=== PATIENT | male | born 1945 | race Caucasian/White ===

== ENCOUNTER → 2016-09-05 | Outpatient (CLI) | payer OTHER, MEDICARE | LOC: FIMAGING 11:35 | PROVIDERS: ATTEND Neurological Surgery | DX: G91.9 Hydrocephalus, unspecified (principal); Z86.39 Personal history of other endocrine, nutritional and metabolic disease ==

== ENCOUNTER → 2016-09-29 | Outpatient (CLI) | payer OTHER, MEDICARE | LOC: FIMAGING 11:15 | PROVIDERS: ATTEND Orthopaedic Surgery | DX: Z01.818 Encounter for other preprocedural examination (principal); M17.12 Unilateral primary osteoarthritis, left knee; M25.562 Pain in left knee; M25.462 Effusion, left knee ==

== ENCOUNTER 2016-10-15 06:50 | Observation (INO) | payer OTHER, MEDICARE ==
[2016-09-30 12:48] LABS: % IMMATURE GRANULYOCYTES 0.4 % (0.0-1.1); ABSOLUTE IMMATURE GRANULOCYTES 0.04 10^3/uL (0.00-0.10); ADD DIFF? NO; ADD MORPH? NO; ADD SCAN? NO; ATYPICAL LYMPHOCYTE FLAG 0 (0-99); FRAGMENT RBC FLAG 0 (0-99); HEMATOCRIT 51.8 % (40.0-51.0); HEMOGLOBIN 17.3 g/dL (13.7-17.5); LEFT SHIFT FLG 0 (0-99); LIPEMIA HEMOLYSIS FLAG 80 (0-99); MEAN CELL HEMOGLOBIN 30.5 pg (27.9-34.1); MEAN CELL HEMOGLOBIN CONCENTR. 33.4 g/dL (32.4-36.7); MEAN CELL VOLUME 91.2 fL (81.5-99.8); MEAN PLATELET VOLUME 9.8 fL (8.7-11.7); PLATELET CLUMPS FLAG 10 (0-99); PLATELET COUNT 374 10^3/uL (150-400); RED BLOOD CELL COUNT 5.68 10^6/uL (4.40-6.38); RED CELL DISTRIBUTION WIDTH 12.6 % (11.5-15.2)
[~2016-10-15 06:50] MED LIST: ACETAMINOPHEN 325 MG TAB PO ONE; CEFAZOLIN 2 GM/DEXTR 100 ML IV ONE; CHLORHEXIDINE GLUC HIBICLENS 118 ML BTL TP ONE; DEXAMETHASONE 4 MG/ML VIAL IVP ONE; FAMOTIDINE 20 MG TAB PO ONE; ROPI/epiNEPH/KETOROLAC JOINT COCKTAIL IU ONE; TRANEXAMIC ACID 3,000 MG in NS 50 ML IRR ONE
[2016-10-15] MEDS ORDERED: PROPOFOL/EMULSION 500 MG/50 ML BOTTLE IV ONE (07:42)
[2016-10-15] MEDS ORDERED: fentaNYL 100 MCG/2 ML INJ ONE (07:42)
[2016-10-15] MEDS ORDERED: VANCOMYCIN 1 GM VIAL IV ONE (07:47)
[2016-10-15] MEDS ORDERED: LIDOCAINE 2% 5 ML SDV ONE (07:47)
[2016-10-15] MEDS ORDERED: DEXAMETHASONE 4 MG/ML VIAL ONE ×3 (07:47)
[2016-10-15] MEDS ORDERED: TRANEXAMIC ACID 3,000 MG/50 ML BAG IRR ONE (07:47)
[2016-10-15] MEDS ORDERED: LIDOCAINE 1% 2 ML INJ ONE (07:50)
[2016-10-15] MEDS ORDERED: BUPIVACAINE 0.5% 30 ML SDV ONE (07:53)
[2016-10-15] MEDS ORDERED: LIDOCAINE 1% 5 ML SDV ID PRN (08:32)
[2016-10-15] MEDS ORDERED: LR 1,000 ML IV ONE (08:32)
[2016-10-15] MEDS ORDERED: LACTULOSE 20 GM/30 ML UDCUP PO PRN (09:22)
[2016-10-15] MEDS ORDERED: PHARMACY PAIN CONSULT 1 EA MISC PRN (09:22)
[2016-10-15] MEDS ORDERED: TEMAZEPAM 15 MG CAP PO PRN (09:22)
[2016-10-15] MEDS ORDERED: PROMETHAZINE HCL 25 MG SUPPR PR PRN (09:22)
[2016-10-15] MEDS ORDERED: METOCLOPRAMIDE 10 MG/2 ML VIAL IVP PRN (09:22)
[2016-10-15] MEDS ORDERED: CYCLOBENZAPRINE 10 MG TAB PO PRN (09:22)
[2016-10-15] MEDS ORDERED: diphenhydrAMINE 25 MG CAP PO PRN (09:22)
[2016-10-15] MEDS ORDERED: MAGNESIUM HYDROXIDE 30 ML UDCUP PO PRN (09:22)
[2016-10-15] MEDS ORDERED: ONDANSETRON 4 MG/2 ML VIAL IVP PRN (09:22)
[2016-10-15] MEDS ORDERED: DIPHENOXYLATE/ATROPINE LOMOTIL 1 TAB PO PRN (09:22)
[2016-10-15] MEDS ORDERED: ONDANSETRON DISINTEGRATING 4 MG TAB PO PRN (09:22)
[2016-10-15] MEDS ORDERED: POLYETHYLENE GLYCOL 3350 17 GM PKT PO PRN (09:22)
[2016-10-15] MEDS ORDERED: BISACODYL 10 MG SUPP PR PRN (09:22)
[2016-10-15] MEDS ORDERED: HYDROCORTISONE 100 MG/2 ML VIAL IVP SCH (09:26)
[2016-10-15] MEDS ORDERED: LR 1,000 ML IV SCH (09:30)
--- NOTE | 2016-10-15 10:21 | POSTOPPROG ---
Post Op Note Date of Operation: 10/15/16 Surgeon: Marcella Lyon [employer] Worker: cj lyon Anesthesiologist: dr. thomas Anesthesia: Spinal, Other (Specify) (adductor canal block) Pre-op Diagnosis: left knee OA Post-op Diagnosis: same Indication: left knee pain due to OA that failed conservative measures Procedure: L med partial knee arthroplasty, robot assisted Findings: severe medial knee OA and osteophytes Inf/Abcess present in the surg proc area at time of surgery?: No EBL: 50-100
[2016-10-15] MEDS: oxyCODONE IR 5 MG TAB PO PRN (15:01)
[2016-10-15] MEDS: ACETAMINOPHEN 325 MG TAB PO SCH ×4 (15:03→23:47)
[2016-10-15] MEDS ORDERED: HYDROCORTISONE 10 MG TAB PO ONE (15:20)
[2016-10-15] MEDS ORDERED: WARFARIN SODIUM 5 MG TAB PO SCH (16:00)
[2016-10-15] MEDS: ceFAZolin 2 GM/DEXTROSE 100 ML IV SCH ×2 (17:05→21:05)
[2016-10-15] MEDS: SENNOSIDES/DOCUSATE SODIUM TAB PO SCH (21:04)
[2016-10-15] MEDS: FAMOTIDINE 20 MG TAB PO SCH (21:05)
[2016-10-16 05:07] LABS: HEMOGLOBIN 12.9 g/dL (13.7-17.5)
[2016-10-16] MEDS: oxyCODONE IR 5 MG TAB PO PRN ×2 (05:17→08:40)
[2016-10-16] MEDS: ACETAMINOPHEN 325 MG TAB PO SCH (05:17)
[2016-10-16 05:20] LABS: INR 1.11 (0.83-1.16); PROTIME(PATIENT) 14.2 SEC (12.0-15.0)
[2016-10-16 07:58] VITALS: BP 113/61; PULSE 78; RESP 20; TEMP 98.4; O2SAT 97
[2016-10-16] MEDS: FAMOTIDINE 20 MG TAB PO SCH (08:38)
[2016-10-16] MEDS: SENNOSIDES/DOCUSATE SODIUM TAB PO SCH (08:38)
[2016-10-16] MEDS ORDERED: TAMSULOSIN HCL 0.4 MG CAP PO SCH (09:00)
[2016-10-16] MEDS ORDERED: DULoxetine 60 MG CAP PO SCH (09:00)
[2016-10-16] MEDS ORDERED: HYDROCORTISONE 10 MG TAB PO SCH (09:00)
[2016-10-16] MEDS ORDERED: ENOXAPARIN 40 MG/0.4 ML SYR SC SCH (09:00)
--- NOTE | 2016-10-16 09:57 | SOAPPROG ---
SOAP Progress Note Assessment/Plan: Assessment: Patient is doing well POD 1 s/p L med MPL 1)Pain management: pain is well controlled on oral pain meds. 2)VTE ppx: recommend coumadin and lovenoxs, cont ERIKA and SCDs 3)Anemia: level is expected initially postop. Asymptomatic. Continue to monitor 4) D/c planning: d/c to home today pending release from PT 5) incision drainage: changed incision dressing today, recommend patient leave in place until Thursday. Change dressing to extra one that hospital will give patient. Call Dr. Keen's office if any concerns arise. Plan: 10/16/16 09:55 Subjective: Jorge is doing well today, denies SOB, chest pain and N/V. 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
--- NOTE | 2016-10-16 14:52 | GDS ---
[f rep st] DISCHARGE SUMMARY ADMISSION DIAGNOSIS: Left knee osteoarthritis. DISCHARGE DIAGNOSIS: Left knee osteoarthritis. PROCEDURE: Left partial knee arthroplasty, medial compartment, robot assisted. VTE PROPHYLAXIS: Coumadin and Lovenox recommended. BRIEF DESCRIPTION OF HOSPITAL STAY: Patient was admitted for an elective joint arthroplasty. The p atient tolerated the procedure well and has passed physical therapy. The patient was given appropri ate antibiotic prophylaxis and venous thromboembolism prophylaxis. The patient's pain was well cont rolled on oral pain medication, patient was holding down food, and had urinated. Decision was made to discharge the patient. The patient was given post-operative prescriptions pre-operatively. PLAN: Please follow up as scheduled in Dr. Keen's office on November 04 at 11 a.m. /[id number]/MODL
--- NOTE | 2016-10-17 12:04 | GOP ---
[f rep st] OPERATIVE REPORT DATE OF OPERATION: 10/15/2016 SURGEON: Eddy Keen MD BALING MACHINE OPERATOR: Erin Keen, MAURO. ANESTHESIA: Spinal. PREOPERATIVE DIAGNOSIS: Left knee osteoarthritis. POSTOPERATIVE DIAGNOSIS: Left knee osteoarthritis. PROCEDURE PERFORMED: Left medial compartment partial knee replacement with computer navigation and robotic assist. FINDINGS: INDICATIONS: This is a 70-year-old male with severe and progressive pain and deformity of the left knee unresponsive to conservative care. The risks and benefits of surgical intervention were explain ed in detail. DESCRIPTION OF PROCEDURE: The patient was brought to the operating room and placed on the table in supine position. Spinal anesthesia was induced without difficulty. A pneumatic tourniquet was appli ed about the left proximal thigh and the leg was prepped and draped in sterile fashion. Attention w as turned first to the distal aspect of the left femur. At 3 cm proximal to the lateral rise of the femur, 2 percutaneous half pins were placed for fixation of the femoral array. In a similar fashio n, 2 pins were placed anterolateral on the tibia for fixation of the tibial array. External land ma rking and registration of the hip center was performed without difficulty. After exsanguination by elevation, the tourniquet was inflated to 250 mmHg. Incision was made from the tibial tuberosity to the superior pole of the patella. Dissection was ca rried out through the subcutaneous tissue to the deep fascia using Bovie electrocautery for hemostas is. Medial parapatellar arthrotomy was carried out to the superior pole of the patella. The medial collateral ligament was elevated and the infrapatellar fat pad was resected. Internal femoral and tibial registration was carried out without difficulty and the femoral and tibial checkpoints were p laced and verified for accuracy. Attention was turned to the femur. The foot print for the size 5 femoral component was cut with the 6 mm bur using the [employer] robotic system and verified for accuracy against the CT based plan. The hol e was cut for the femoral post. In a similar fashion, the 6 mm bur was used to cut the foot print f or the size 5 tibial component using the BEST system and verified for accuracy against the CT based p sherron. Attention was turned to the posterior aspect of the knee and remnants of the medial meniscus were ex cised. The posterior capsule was injected with ropivacaine, epinephrine and Toradol. Trial reducti on was carried out and there was excellent range of motion, alignment and stability using the size 5 femoral component and the size 5 tibial component, 5 x 9 mm polyethylene. All trials were then removed. The joint was thoroughly irrigated and carefully dried. One package of cement and 1 gram of vancomycin were mixed in the vacuum mixer and placed on the fixation surface s of all components. The components were implanted and all excess cement was thoroughly removed. I mplant placement was verified against the CT view plan and found to be excellent. The tourniquet was deflated and all bleeders were coagulated. The wound was thoroughly irrigated an d closed using interrupted sutures of 2-0 Vicryl for the joint capsule. The subcu was closed with 3 -0 Vicryl and the skin with 4-0 Monocryl. Dermabond and Steri-Strips were applied, followed by a co mpressive dressing. The patient was then moved from the operating room to the recovery room in good condition, having tolerated the procedure well. CASE CLASSIFICATION: Clean. PATHOLOGY: Severe medial compartment osteoarthritis. /[id number]/MODL
== END 2016-10-16 12:13 | disposition home or self-care (01) ==
LOC: INTOOBSV 06:50 → F3N 06:50
PROVIDERS: ADMIT Orthopaedic Surgery; ATTEND Orthopaedic Surgery
DX: M17.12 Unilateral primary osteoarthritis, left knee (principal)
CPT/HCPCS: 27442; 73560; 97110; 97116; 97161; 97165; C1713; C1776; G8978; G8979; G8980; G8987; G8988; G8989; J0171; J0690; J1100; J1650; J1885; J2704; J2795; J3010; J3370; G8981-GP-CI

== ENCOUNTER 2016-12-15 18:19 | Emergency (ER) | payer OTHER, MEDICARE ==
--- NOTE | 2016-12-15 19:16 | EDPHY ---
H & P HPI/ROS: HPI SENIOR QUALITY ASSURANCE ENGINEER shunt evaluation. 70-year-old male by private vehicle with his . This patient has a history of hydrocephalus. He has had a SENIOR QUALITY ASSURANCE ENGINEER shunt in place for the last 3 years. He has had complications from his SENIOR QUALITY ASSURANCE ENGINEER shunts including subdural hematomas and required abdominal surgery to remove the parts of the faulty shunt. He is currently being managed by Humberto Anne. He presents to the emergency department stating that for at least the last month he has had issues with balance. He reports that he leans to 1 side or the other and has to make a conscious effort to correct himself. He also describes having very mild vertigo associated with this. He describes as well having a very mild headache which she has had for at least a month and a half. His states that when he is taking a nap he has been hard to wake up than usual. She states this has been going on for 2 and half to 3 weeks. The patient denies any new or worsening headache. No fever. No neck pain. He denies any loss of sensation or weakness in his extremities. Has no other complaints. He was sent by his neurosurgeon, Dr. Humberto Anne for a CT to evaluate his shunt function. ROS: Constitutional: No fever, no chills. As above. Eyes: No discharge. No changes in vision. ENT: No sore throat. No nasal congestion or rhinorrhea. Respiratory: No cough. No shortness of breath. Cardiac: No chest pain, no palpitations. Gastrointestinal: No abdominal pain, no vomiting, no diarrhea. Genitourinary: No hematuria. No dysuria or increased frequency with urination. Musculoskeletal: No back pain. No neck pain. No myalgias or arthralgias. Skin: No rashes. Neurological: As above. No focal weakness or altered sensation. Past medical history: Pituitary tumor, hydrocephalus, neuropathy, SENIOR QUALITY ASSURANCE ENGINEER shunt placement in August of 2014, bilateral knee surgery. As above. Social history: Nonsmoker. No alcohol. Here with his . Physical Exam: General Appearance: Alert, no distress. This patient is responding to questions appropriately and in full sentences. This patient appears well- hydrated and well-nourished. Head: Normocephalic atraumatic Eyes: Pupils equal and round no pallor or injection. No lid edema, erythema or injection. Respiratory: There are no retractions, lungs are clear to auscultation with good air movement bilaterally. Cardiovascular: Regular rate and rhythm. No murmur. Gastrointestinal: Abdomen is soft and nontender, no masses, bowel sounds normal. No focal tenderness at McBurney's point. No Hutton sign. Neurological: Motor sensory function is grossly intact. Cranial nerves are normal. He has a shuffling gait which is his baseline. He does ambulate well with a cane. He is answering questions appropriately. He does not appear confused. He denies any urinary incontinence. Skin: Warm and dry, no rashes. Musculoskeletal: Neck is supple and nontender. Extremities are symmetrical. All joints range without pain or impingement. Psychiatric: No agitation. No depression. Database: EKG: Imaging: CT scan of head without contrast: No change from prior study August of 2016. Results were discussed with staff radiologist Dr. Vlad Heart. Procedures: Emergency department course: Patient sent for CT imaging. Spoke with Dr. Humberto Anne at 7:[address] scan discussed with him. Neurologic Assessment discussed. Dr. Anne feels comfortable with this patient being discharged from the emergency department following up in his office for possible shunt adjustment. 7:15 p.m., patient re-evaluated. Sitting upright on the bed. Repeat neurologic Assessment is nonfocal and at baseline. My conversation with Dr. Anne was reviewed with the patient and his . Results of the CT scan were discussed with the patient and his . They both feel comfortable going home and following up with Dr. Humberto Anne in the office in the next 1-2 days. He will call Dr. Anne in the morning for appointment time. I feel this is reasonable. Return to emergency department precautions were discussed with the 2 of them. All of their questions were answered. The patient was discharged in good condition. Differential Diagnosis: The differential diagnosis on this patient includes but is not limited to chronic hydrocephalus. SENIOR QUALITY ASSURANCE ENGINEER shunt malfunction, CVA, intracranial bleeding unlikely. This represents a partial list of diagnoses considered. These considerations are based on history, physical exam, past history, reassessment and diagnostic testing. Smoking Status: Current every day smoker Constitutional: Initial Vital Signs Temperature (C) 36.8 C 12/15/16 18:30 Heart Rate 74 12/15/16 18:30 Respiratory Rate 18 12/15/16 18:30 Blood Pressure 132/71 H 12/15/16 18:30 O2 Sat (%) 91 L 12/15/16 18:30 O2 Delivery Mode Room Air Allergies/Adverse Reactions: amoxicillin trihydrate [From Augmentin] Allergy (Mild, Verified 12/15/16 18:40) Rash potassium clavulanate [From Augmentin] Allergy (Mild, Verified 12/15/16 18:40) Rash Home Medications: Medication Instructions Recorded DULoxetine [Cymbalta 60 MG (*)] 60 mg PO DAILY 03/09/15 Tamsulosin HCl [Flomax 0.4 MG (*)] 0.4 mg PO DAILY 03/09/15 Herbals/Supplements -Info Only 1 ea PO DAILY 09/15/16 Hydrocodone/Acetaminophen [[place] 2 tab PO BID PRN 09/15/16 7.5-325 Tablet] Hydrocortisone [Cortef 10 mg (*)] 30 mg PO DAILY 09/15/16 Multivitamins [Multivitamin (*)] 1 tab PO DAILY 09/15/16 Arthritis Med 12/15/16 Medical Decision Making - Diagnostics Imaging Results: Imaging Impressions Head CT 12/15/16 17:10 Impression: 1. Stable hydrocephalus with a right occipital ventriculostomy catheter in stable position, with no acute findings. 2. Stable right pituitary adenoma. 3. Additional findings as above. Findings discussed with Angelito Anne 12/15/2016, at 1750 hours. The patient will be escorted to the ED at the request of Dr. Anne. The patient and the CT findings were discussed with Christiano Vázquez today, 12/15/2016, at 1750 hours. Departure - Departure Disposition: Home, Routine, Self-Care Clinical Impression: Hydrocephalus Condition: Good Instructions: Idiopathic Intracranial Hypertension (ED) Additional Instructions: Read and follow provided instructions. Follow-up with Dr. Humberto Anne, neurosurgeon, as discussed in the next 1-2 days. Call his office in the morning for appointment time. Continue your medications as prescribed. Return to the emergency department for worsening symptoms, worsening headache, fever, vomiting or other serious concerns. Referrals: Angelito Anne MD [Medical Doctor] - As per Instructions
[2016-12-15 19:36] VITALS: BP 102/70; PULSE 73; RESP 16; TEMP 97.7; O2SAT 93
== END 2016-12-15 19:36 | disposition home or self-care (01) ==
LOC: EDSTATUS 18:19
DX: G91.9 Hydrocephalus, unspecified (principal); F17.200 Nicotine dependence, unspecified, uncomplicated; Y82.8 Other medical devices associated with adverse incidents

== ENCOUNTER → 2017-01-13 | Outpatient (CLI) | payer OTHER, MEDICARE ==
[~2017-01-13] MED LIST changes: -ACETAMINOPHEN 325 MG TAB PO ONE; -CEFAZOLIN 2 GM/DEXTR 100 ML IV ONE; -CHLORHEXIDINE GLUC HIBICLENS 118 ML BTL TP ONE; -DEXAMETHASONE 4 MG/ML VIAL IVP ONE; -FAMOTIDINE 20 MG TAB PO ONE; +GADOBUTROL 10 ML VIAL IVP ONE; -ROPI/epiNEPH/KETOROLAC JOINT COCKTAIL IU ONE; -TRANEXAMIC ACID 3,000 MG in NS 50 ML IRR ONE
== END ==
LOC: FIMAGING 07:11
PROVIDERS: ATTEND Physician Assistant
DX: M48.06 Spinal stenosis, lumbar region (principal); M51.36 Other intervertebral disc degeneration, lumbar region; M51.26 Other intervertebral disc displacement, lumbar region; M46.96 Unspecified inflammatory spondylopathy, lumbar region; M51.35 Other intervertebral disc degeneration, thoracolumbar region; M46.95 Unspecified inflammatory spondylopathy, thoracolumbar region; M48.05 Spinal stenosis, thoracolumbar region; M51.37 Other intervertebral disc degeneration, lumbosacral region; M46.97 Unspecified inflammatory spondylopathy, lumbosacral region; M48.07 Spinal stenosis, lumbosacral region; Z98.890 Other specified postprocedural states
CPT/HCPCS: 72158; A9585

== ENCOUNTER → 2017-02-17 | Outpatient (CLI) | payer OTHER, MEDICARE | LOC: CIMAGING 11:35 | PROVIDERS: ATTEND Physical Medicine & Rehabilitation Neuromuscular Medicine | DX: Z09 Encounter for follow-up examination after completed treatment for conditions other than malignant neoplasm (principal); Z98.1 Arthrodesis status | CPT/HCPCS: 72114-PO ==

== ENCOUNTER → 2017-03-10 | Outpatient (CLI) | payer OTHER, MEDICARE | LOC: FIMAGING 10:29 | PROVIDERS: ATTEND Neurological Surgery | DX: D35.2 Benign neoplasm of pituitary gland (principal); G91.9 Hydrocephalus, unspecified; Z98.2 Presence of cerebrospinal fluid drainage device | CPT/HCPCS: 70553; A9585 ==

== ENCOUNTER → 2017-06-04 | Outpatient (CLI) | payer OTHER, MEDICARE | LOC: FIMAGING 07:03 | PROVIDERS: ATTEND Neurological Surgery | DX: M51.34 Other intervertebral disc degeneration, thoracic region (principal); M99.72 Connective tissue and disc stenosis of intervertebral foramina of thoracic region; M50.30 Other cervical disc degeneration, unspecified cervical region; M51.36 Other intervertebral disc degeneration, lumbar region ==

== ENCOUNTER 2017-09-09 07:37 | Day surgery (SDC) | payer OTHER, MEDICARE ==
--- NOTE | 2017-08-26 12:34 | GHP ---
[f rep st] PREOP HISTORY AND PHYSICAL DATE OF ADMISSION: 09/04/2017 HISTORY OF PRESENT ILLNESS: The patient is a 71-year-old male with chronic back pain and failed back syndrome. He has had multiple lumbar cervical interventions including a decompression and fusion. 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 Naik with revision 3 months later. He has had multiple shunt adj ustments and currently sots at 90 on his Codman shunt. The patient's main complaint is his back pain . He has lower back pain, as well as numbness and pain that radiates down his right lateral thigh an d medial calf. Back pain is worse than leg pain. Back pain is rated at a 6/10. His pain is disrupt ing his sleep. He has tried multiple injections in the past with Dr. Cavanaugh. However, these are no l onger providing long-term relief. He is interested in proceeding with spinal cord stimulator. PAST MEDICAL HISTORY: Osteoarthritis, hydrocephalus, pituitary tumor, and headache, subdural hygroma . PAST SURGICAL HISTORY: Intervention lumbar decompression and fusion. FRONT OFFICE SECRETARY shunt with revision. ALLERGIES: Amoxicillin, potassium. HOME MEDICATIONS: Please refer to the MAR. REVIEW OF SYSTEMS: Patient denies chest pain, shortness of breath, abdominal pain, nausea, vomiting, fevers, or chills. No loss of bowel or bladder control. SOCIAL HISTORY: Patient admits to smoking. PHYSICAL EXAMINATION: GENERAL: Patient was seen and examined. Appears to be in no apparent distres s. Mood and affect are appropriate, alert and oriented. Facial expression is symmetrical. Tongue i s midline with protrusion. Hearing is grossly intact. Speech is fluent without any dysarthria. Mus liz strength is well preserved in his upper and lower extremities at a 5/5, and sensation is intact t o light touch. ASSESSMENT AND PLAN: In summary, the patient is a 71-year-old male with back pain. He has an MRI of the lumbar spine from December of 2016 that reveals moderate central canal stenosis at L1-2 and moderate to severe bilateral neural foraminal stenosis secondary to severe degenerative disk disease, degener ative grade 1 retrolisthesis, left paramedian disk herniation and severe bilateral facet arthropathy. At L2-3, there is moderate to severe central canal stenosis and moderate to severe bilateral neural foraminal stenosis secondary to severe degenerative disk disease with degenerative grade 1 retrolist hesis, circumferential disk bulge and osteophytes, and severe bilateral facet arthropathy. Postsurgi patrick changes at L3-4 and L4-5 with L4 degenerative grade 1 anterolisthesis. He has an EMG of the righ t lower extremity from January 2017 that reveals no electrodiagnostic evidence of an ongoing axonal lo ss, right lower extremity radiculopathy, plexopathy, or mononeuropathy. There is a prolonged right t ibial H-reflex that could be consistent with interruption of the right S1 reflex arc and may be an ol d finding. This could reflect a chronic right S1 radiculitis. He has MRI of the thoracic spine that reveals stenosis at C6-7, C7-T1 and L1-2. He has had a neuropsych evaluation done by Dr. Lorenzo childress that states he is a candidate for spinal cord stimulation. We believe that the patient is a suitable candidate to proceed with spinal cord stimulation for his t reatment of his chronic back and lower extremity pain. The risks, benefits, and procedure were discu ssed in detail. He will proceed today with thoracic laminectomy for spinal cord stim paddle lead tri al and, if successful, he will return next week for implant of the generator. All the patient's ques tions and concerns were addressed and answered, and patient signed consents. /[id number]/MODL
[2017-09-09] MEDS ORDERED: ceFAZolin 2 GM/SWFI 2 GM/20 ML SYR IVP ONE (07:50)
[2017-09-09] MEDS ORDERED: ACETAMINOPHEN 500 MG TAB PO ONE (07:50)
[2017-09-09] MEDS ORDERED: LR 1,000 ML IV ONE (07:56)
[2017-09-09] MEDS ORDERED: LIDOCAINE 1% 2 ML INJ ID PRN (07:56)
[2017-09-09] MEDS ORDERED: MIDAZOLAM 2 MG/2 ML VIAL IVP ONE (09:05)
--- NOTE | 2017-09-09 09:09 | PDANEPAE ---
ANE Past Medical History - Cardiovascular History Hx Hypertension: No Hx Arrhythmias: No Hx Chest Pain: No Hx Coronary Artery / Peripheral Vascular Disease: No Hx CHF / Valvular Disease: No Hx Palpitations: No Cardiovascular History Comment: Post Op L PE post L knee scope. - Pulmonary History Hx COPD: No Hx Asthma/Reactive Airway Disease: No Hx Recent Upper Respiratory Infection: No Hx Oxygen in Use at Home: No Hx Sleep Apnea: No Sleep Apnea Screening Result - Last Documented: Negative - Neurologic History Hx Cerebrovascular Accident: No Hx Seizures: No Hx Dementia: No Neurologic History Comment: H/As due to PITUITARY TUMOR CYBERKNIFE TREATMENT FINISHED IN . Numbness R leg due to spine. Hydrcephalus-with shunt. - Endocrine History Hx Diabetes: No Endocrine History Comment: Prediabetic-metformin. - Renal History Hx Renal Disorders: Yes Renal History Comment: BPH - Liver History Hx Hepatic Disorders: No - Neurological & Psychiatric Hx Hx Neurological and Psychiatric Disorders: No - Cancer History Hx Cancer: Yes Cancer History Comment: SKIN - Congenital Disorder History Hx Congenital Disorders: No - GI History Hx Gastrointestinal Disorders: No - Other Health History Other Health History: Bilateral tinnitus. 2001-inpt staph inf post spinal surg , on ABX for 8 weeks - Chronic Pain History Chronic Pain: Yes (back and knees.) - Surgical History Prior Surgeries: LT KNEE RESURFACING 09/2013. Bilateral knee scopes. L shoulder repair. Back surg 1994, 1999, 2 in 2000. cerebral shunt 08/2014; revised x1 12/11. ApENDECTOMY. Bilateral ing hernia repair. ANE Review of Systems Review of Systems: - Exercise capacity METS (RN): 4 METS ANE Patient History - Allergies Allergies/Adverse Reactions: amoxicillin trihydrate [From Augmentin] Allergy (Mild, Verified 12/15/16 18:40) Rash potassium clavulanate [From Augmentin] Allergy (Mild, Verified 12/15/16 18:40) Rash - Home Medications Home Medications: DULoxetine [Cymbalta 60 MG (*)] 60 mg PO DAILY06 03/09/15 [Last Taken 09/08/17 08:00] Tamsulosin HCl [Flomax 0.4 MG (*)] 0.4 mg PO DAILY06 03/09/15 [Last Taken 08:00] Herbals/Supplements -Info Only 1 ea PO DAILY 09/15/16 [Last Taken 09/02/17] Hydrocodone/Acetaminophen [[place] 7.5-325 Tablet] 2 tab PO BID PRN 09/15/16 [ Last Taken 09/09/17 06:00] Multivitamins [Multivitamin (*)] 1 tab PO DAILY 09/15/16 [Last Taken 09/02/17] GABAPENTIN BID 08/04/17 [Last Taken 09/08/17 22:00] Meloxicam DAILY06 08/04/17 [Last Taken 09/08/17] TESTOSTERONE INJ 08/04/17 [Last Taken 09/02/17] - NPO status NPO Since - Liquids (Date): 09/08/17 NPO Since - Liquids (Time): 23:00 NPO Since - Solids (Date): 09/08/17 NPO Since - Solids (Time): 23:00 - Anes Hx Anes Hx: no prior problems - Smoking Hx Smoking Status: Heavy smoker - Family Anes Hx Family Hx Anesthesia Complications: none ANE Labs/Vital Signs - Vital Signs Blood Pressure: 118/67 Heart Rate: 65 Respiratory Rate: 16 O2 Sat (%): 97 Height: 167.64 cm Weight: 74.843 kg ANE Physical Exam - Airway Neck exam: FROM Mallampati Score: Class 2 Mouth exam: normal dental/mouth exam - Pulmonary Pulmonary: no respiratory distress, no rales or rhonchi, clear to auscultation - Cardiovascular Cardiovascular: regular rate and rhythym, no murmur, rub, or gallop - ASA Status ASA Status: II ANE Anesthesia Plan Anesthesia Plan: general endotracheal anesthesia
--- NOTE | 2017-09-09 09:14 | PDHPUP ---
History & Physical Update H&P update statement: This history and physical update is based on an assessment of the patient which was completed after admission or registration (within 24 hours), but prior to the surgery/procedure. H&P update: H&P reviewed & patient examined, no change in patient's condition since H&P completed
[2017-09-09] MEDS ORDERED: fentaNYL 100 MCG/2 ML INJ ONE (09:19)
[2017-09-09] MEDS ORDERED: KETAMINE 200 MG/20 ML VIAL ONE (09:19)
[2017-09-09] MEDS ORDERED: ONDANSETRON 4 MG/2 ML VIAL ONE (09:20)
[2017-09-09] MEDS ORDERED: PROPOFOL 200 MG/20 ML VIAL ONE (09:20)
[2017-09-09] MEDS ORDERED: LIDOCAINE 2% 5 ML SDV ONE (09:20)
[2017-09-09] MEDS ORDERED: SUCCINYLCHOLINE CHLORIDE 200 MG/10 ML SYR IVP ONE (09:21)
[2017-09-09] MEDS ORDERED: DEXAMETHASONE 4 MG/ML VIAL ONE ×2 (09:21)
[2017-09-09] MEDS ORDERED: BACITRACIN 50,000 UNITS/10 ML SYR IRR ONE (09:22)
[2017-09-09] MEDS ORDERED: CHLORHEXIDINE GLUCONATE 15 ML UDL ONE (09:23)
[2017-09-09] MEDS ORDERED: CHLORHEXIDINE GLUC HIBICLENS 118 ML BTL TP ONE (09:25)
[2017-09-09] MEDS ORDERED: SURGIFLO MATRIX KIT WITH THROMBIN 8ml TP ONE (09:25)
[2017-09-09] MEDS: BUPIVACAINE 0.25% 30 ML SDV ONE ×2 (09:26→10:19)
[2017-09-09] MEDS ORDERED: THROMBIN (BOVINE) 5,000 UNIT VIAL TP ONE (10:00)
[2017-09-09] MEDS ORDERED: BUPIVACAINE 0.25% 30 ML SDV ONE (10:14)
[2017-09-09] MEDS ORDERED: LIDOCAINE 1% 300 MG/30 ML SDV ONE (10:15)
[2017-09-09] MEDS ORDERED: fentaNYL 100 MCG/2 ML INJ IVP PRN (10:35)
[2017-09-09] MEDS ORDERED: ACETAMINOPHEN 500 MG TAB PO PRN (10:35)
[2017-09-09] MEDS ORDERED: PROMETHAZINE HCL 25 MG/ML INJ IVP PRN (10:35)
[2017-09-09] MEDS ORDERED: LR 500 ML IV PRN (10:35)
[2017-09-09] MEDS ORDERED: NALOXONE HCL 0.4 MG/ML INJ IVP PRN (10:35)
[2017-09-09] MEDS ORDERED: DIAZEPAM 5 MG/ML 1 ML SYR IVP PRN (10:35)
[2017-09-09] MEDS ORDERED: ONDANSETRON 4 MG/2 ML VIAL IVP PRN (10:35)
[2017-09-09] MEDS ORDERED: HYDROCODONE/APAP 5/325 TAB PO PRN (10:35)
[2017-09-09] MEDS ORDERED: METHOCARBAMOL 750 MG TAB PO PRN (11:28)
--- NOTE | 2017-09-09 11:30 | POSTANESTH ---
Post Anesthetic Evaluation Cardiovascular Status: Normal, Stable, Similar to Pre-Op Cond Respiratory Status: Normal, Stable, Similar to Pre-op Cond. Level of Consciousness/Mental Status: Can Participate in Eval, Alert and Oriented Pain Control: Adequate, Prn Tx Ordered Nausea/Vomiting Control: Adequate, Prn Tx Ordered Complications Possibly Related to Anesthesia: None Noted
--- NOTE | 2017-09-09 11:31 | POSTOPPROG ---
Post Op Note Date of Operation: 09/09/17 Surgeon: Nicci Osorio Catia Designer: Claribel Otto PA-C Anesthesia: IV Sedation, Local (Specify) Pre-op Diagnosis: Chronic pain Post-op Diagnosis: Chronic pain Procedure: Thoracic laminectomy for SCS paddle lead trial Inf/Abcess present in the surg proc area at time of surgery?: No EBL: Minimal Plan Plan: 71 yo male s/p thoracic laminectomy for SCS paddle lead trial - pain control - neuro checks - advance diet - dc home today Seen in recovery. Doing well Strength full Sensation intact
--- NOTE | 2017-09-09 11:39 | GOP ---
[f rep st] OPERATIVE REPORT DATE OF OPERATION: 09/09/2017 SURGEON: Nicci Osorio DO NEUROSURGEON: Nicci Osorio DO. CONTAINER PACKER OPERATOR: Claribel Otto PA-C. PREOPERATIVE DIAGNOSIS: 1. Chronic pain syndrome. 2. Failed back syndrome. POSTOPERATIVE DIAGNOSIS: 1. Chronic pain syndrome. 2. Failed back syndrome. PROCEDURE PERFORMED: 1. Thoracic laminectomy T10-11, T9-10 for placement of T8-9-10 paddle lead for trial with Medtronic 565. SureScan paddle lead. 2. Impedance. FINDINGS: SPECIMENS: None. ESTIMATED BLOOD LOSS: 50 mL. INDICATIONS: This is a 71-year-old male with failed back syndrome and chronic pain syndrome who pass ed the neuropsych evaluation, and elected to move forward with a thoracic laminectomy and placement o f trial paddle lead. DESCRIPTION OF PROCEDURE: He was identified and consented. Sites were marked. Brought to the opera ting room, anesthetized under local, and rolled onto the OR bed with a Kaz frame. All pressure po ints were appropriately padded. Counting up from the sacrum, we marked the T9-10, T10-11 space. He was prepped and draped in the usual sterile fashion. Incision site was anesthetized with a 50/50 mix ture of 0.25% Marcaine with epinephrine, and 1% lidocaine. Incision was made with a 10 blade. Hemos tasis was obtained with Bovie and bipolar cautery dissecting down onto the lamina. Measured and plac ed a Shadow-Line retractor. Placed the [place] and verified we were at the appropriate level. Used a Leksell to remove the spinous process and then opened the ligamentum flavum with a ball-tip probe. Extended a 2, 3, and 4 Kerrison's. Gently slid the lead in; however, we struck something solid and so had to move down and do another laminectomy at the level below. It turns out that this was a joe y calcified piece of ligament adherent to the dura and so this was removed after the laminectomy was performed in the same fashion. This was removed with a 15 blade. There was no CSF present and we we re able to slide the lead in with T8-9, 9-10 paddle lead. The patient was woken, tested, had good co verage in all areas of his pain. He was re-anesthetized and we used the Injex bumpy anchors to sutur e the lead down with 2-0 silk stitch at 2 positions, copiously irrigated with over a liter of gentami navi infused saline. Meticulous hemostasis was obtained with FloSeal. We then closed the fascia with 0 Vicryl pop-offs. Created a subcutaneous pocket with Metzenbaum scissors, and placed the extension s over the lead, and the boot over the lead extension. Tied into place with silk stitch at 2 positio ns after locking it down with the torque wrench. We then tested impedances; all impedances were good . Tunneled out to the left as he would like a right-sided permanent paddle. Coiled the leads manager program management ior and around the incision. Copiously irrigated again with a liter of gentamicin infused saline. C losed the subcutaneous layer with 2-0 Vicryl pop-offs, cutaneous layer with 3-0 Vicryl pop-offs. The skin was closed with 3-0 running nylon. Stitch was placed around the leads as they exited. Wound w as dressed with Xeroform gauze and Medipore tape. Patient tolerated procedure well. No complication s. FLUIDS REPLACED: 600 mL crystalloid. URINE OUTPUT: None. DRAINS: None. COMPLICATIONS: None. /[id number]/MODL
[2017-09-09 12:21] VITALS: BP 128/74; PULSE 59; RESP 14; TEMP 98.1; O2SAT 94
== END 2017-09-09 12:59 | disposition home or self-care (01) ==
LOC: FSGY 07:37
PROVIDERS: ATTEND Neurological Surgery
PROC: BR171ZZ Fluoroscopy of Thoracic Spine using Low Osmolar Contrast (ICD-10-PCS; 2017-09-09)
PROC: 00HV0MZ Insertion of Neurostimulator Lead into Spinal Cord, Open Approach (ICD-10-PCS; principal; 2017-09-09 09:30)
DX: G89.4 Chronic pain syndrome (principal); M96.1 Postlaminectomy syndrome, not elsewhere classified; M48.061 Spinal stenosis, lumbar region without neurogenic claudication; M51.36 Other intervertebral disc degeneration, lumbar region; M51.26 Other intervertebral disc displacement, lumbar region; M54.16 Radiculopathy, lumbar region; M48.02 Spinal stenosis, cervical region; M48.03 Spinal stenosis, cervicothoracic region; M51.34 Other intervertebral disc degeneration, thoracic region; M50.30 Other cervical disc degeneration, unspecified cervical region; M48.05 Spinal stenosis, thoracolumbar region; G91.9 Hydrocephalus, unspecified; F17.200 Nicotine dependence, unspecified, uncomplicated; Z86.018 Personal history of other benign neoplasm; Z88.0 Allergy status to penicillin; Z98.2 Presence of cerebrospinal fluid drainage device; Z98.1 Arthrodesis status
CPT/HCPCS: C1778; C1883; J0171; J0330; J0690; J1100; J2250; J2405; J2704; J3010

== ENCOUNTER 2017-09-16 06:19 | Day surgery (SDC) | payer OTHER, MEDICARE ==
--- NOTE | 2017-09-15 10:04 | GHP ---
[f rep st] HISTORY AND PHYSICAL DATE OF ADMISSION: 09/16/2017 HISTORY OF PRESENT ILLNESS: The patient is a 71-year-old male, who presents to the hospital today with stage II spinal cord stimulation implant. He underwent surgery 1 week ago on September [address] Nicci Osorio with thoracic laminectomy for spinal cord stimulator paddle lead trial for chronic pain. The patient reports that he has had greater than 50% reduction in his day-to-day chronic pain and his mobility and activities have also increased. He denies any fevers or drainage or redness at the incision. He would like to proceed with permanent implant. PAST MEDICAL HISTORY: Chronic pain, osteoarthritis, hydrocephalus, pituitary tumor, headaches, subdural hygroma. PAST SURGICAL HISTORY: Lumbar decompression and fusion, SYSTEM MANAGER shunt with revision. ALLERGIES: Amoxicillin, potassium. MEDICATIONS: Please refer to MAR REVIEW OF SYSTEMS: Patient denies chest pain, shortness of breath, abdominal pain, nausea, vomiting, fevers, or chills. No loss of bowel or bladder control. SOCIAL HISTORY: Patient admits to smoking. PHYSICAL EXAM: Patient seen, examined, appears in no apparent distress. Mood and affect are appropriate. Alert and oriented. Facial expression is symmetrical. Tongue is in midline with protrusion. Hearing is grossly intact. Speech is without dysarthria. Muscle strength is well preserved in his upper and lower extremities are 5/5 and sensation is intact to light touch. ASSESSMENT AND PLAN: In summary, the patient is a 71-year-old male with chronic back pain. He underwent a spinal cord stimulator paddle lead trial 1 week ago and has had a successful trial. He reports greater than 50% reduction in his day-to-day chronic pain. We recommend proceeding with permanent implant of the internal pulse generator today. The risks, benefits, and procedure were discussed in detail with the patient. The patient has agreed and has consented. All questions and concerns were addressed and answered. /[id number]/MODL MTDD
[2017-09-16] MEDS ORDERED: ceFAZolin 2 GM/SWFI 2 GM/20 ML SYR IVP ONE (06:45)
[2017-09-16] MEDS ORDERED: LR 1,000 ML IV ONE (06:46)
[2017-09-16] MEDS ORDERED: CHLORHEXIDINE GLUC HIBICLENS 118 ML BTL TP ONE (07:45)
[2017-09-16] MEDS ORDERED: BUPIVACAINE 0.25% 30 ML SDV ONE (07:45)
[2017-09-16] MEDS ORDERED: BACITRACIN 50,000 UNITS/10 ML SYR IRR ONE (07:46)
[2017-09-16] MEDS ORDERED: MIDAZOLAM 2 MG/2 ML VIAL ONE (07:55)
[2017-09-16] MEDS ORDERED: MIDAZOLAM 2 MG/2 ML VIAL IVP ONE (07:55)
--- NOTE | 2017-09-16 07:55 | PDANEPAE ---
ANE History of Present Illness scs gen implant ANE Past Medical History - Cardiovascular History Hx Hypertension: No Hx Arrhythmias: No Hx Chest Pain: No Hx Coronary Artery / Peripheral Vascular Disease: No Hx CHF / Valvular Disease: No Hx Palpitations: No Cardiovascular History Comment: PostOp L PE post L knee scope. Inpt heparin- resolved. - Pulmonary History Hx COPD: No Hx Asthma/Reactive Airway Disease: No Hx Recent Upper Respiratory Infection: No Hx Oxygen in Use at Home: No Hx Sleep Apnea: No Sleep Apnea Screening Result - Last Documented: Negative Pulmonary History Comment: smoker x 40 yrs. - Neurologic History Hx Cerebrovascular Accident: No Hx Seizures: No Hx Dementia: No Neurologic History Comment: H/As (seldom) due to pituitary tumor. Numbness R leg due to spine-improving. Hydrcephalus-with shunt. - Endocrine History Hx Diabetes: No Endocrine History Comment: Prediabetic-metformin. - Renal History Hx Renal Disorders: No Renal History Comment: BPH-med - Liver History Hx Hepatic Disorders: No - Neurological & Psychiatric Hx Hx Neurological and Psychiatric Disorders: No Neurological / Psychiatric History Comment: R leg numbnes-improving. pain in low back - Cancer History Hx Cancer: Yes Cancer History Comment: Basal cell-removed. - Congenital Disorder History Hx Congenital Disorders: No - GI History Hx Gastrointestinal Disorders: No - Other Health History Other Health History: 2 teeth extracted -18;. Bilateral tinnitus. 2001-inpt staph inf post spinal surg, on ABX for 8 weeks - Chronic Pain History Chronic Pain: Yes (low back) - Surgical History Prior Surgeries: wires place for spinal cord stimulator 09-09-17. LT KNEE RESURFACING 09/2013. Bilateral knee scopes. L shoulder repair. Back surg 1994 , 1999, 2 in 2000. cerebral shunt 08/2014; revised x1 12/11. Appendectomy. Bilateral ing hernia repair. ANE Review of Systems Review of systems is: negative Review of Systems: - Exercise capacity Exercise capacity: >=4 METS METS (RN): 4 METS ANE Patient History - Allergies Allergies/Adverse Reactions: amoxicillin trihydrate [From Augmentin] Allergy (Mild, Verified 09/14/17 11:53) Rash potassium clavulanate [From Augmentin] Allergy (Mild, Verified 09/14/17 11:53) Rash - Home Medications Home Medications: Tamsulosin HCl [Flomax 0.4 MG (*)] 0.4 mg PO DAILY06 03/09/15 [Last Taken 08:00] Herbals/Supplements -Info Only 1 ea PO DAILY 09/15/16 [Last Taken 09/09/17] Multivitamins [Multivitamin (*)] 1 tab PO DAILY 09/15/16 [Last Taken 09/09/17] GABAPENTIN BID 08/04/17 [Last Taken 09/16/17] TESTOSTERONE INJ 08/04/17 [Last Taken 09/16/17] Cymbalta 60 MG (*) 09/16/17 [Last Taken 09/16/17] - NPO status NPO Status: no food or drink >8 hours NPO Since - Liquids (Date): 09/16/17 NPO Since - Liquids (Time): 05:00 NPO Since - Solids (Date): 09/15/17 - Anes Hx Anes Hx: no prior problems - Smoking Hx Smoking Status: Heavy smoker - Alcohol Use Alcohol Use: None - Family Anes Hx Family Anes Hx: none Family Hx Anesthesia Complications: none ANE Labs/Vital Signs - Vital Signs Vital Signs: reviewed preoperatively; see RN documention for details Blood Pressure: 110/67 Heart Rate: 72 Respiratory Rate: 16 O2 Sat (%): 92 Height: 170.18 cm Weight: 74.389 kg ANE Physical Exam - Airway Neck exam: FROM Mallampati Score: Class 2 - Pulmonary Pulmonary: no respiratory distress - Cardiovascular Cardiovascular: regular rate and rhythym - ASA Status ASA Status: II ANE Anesthesia Plan Anesthesia Plan: general endotracheal anesthesia
[2017-09-16] MEDS ORDERED: ROCURONIUM 50 MG/5 ML VIAL ONE (07:59)
[2017-09-16] MEDS ORDERED: fentaNYL 100 MCG/2 ML INJ ONE (07:59)
[2017-09-16] MEDS ORDERED: PROPOFOL 200 MG/20 ML VIAL ONE (07:59)
[2017-09-16] MEDS ORDERED: LIDOCAINE 2% 5 ML SDV ONE (07:59)
[2017-09-16] MEDS ORDERED: DEXAMETHASONE 4 MG/ML VIAL ONE (08:25)
[2017-09-16] MEDS ORDERED: ONDANSETRON 4 MG/2 ML VIAL ONE (08:25)
[2017-09-16] MEDS ORDERED: ONDANSETRON DISINTEGRATING 4 MG TAB PO PRN (09:05)
[2017-09-16] MEDS ORDERED: HYDROCODONE/APAP 5/325 TAB PO PRN (09:05)
[2017-09-16] MEDS ORDERED: MEPERIDINE 25 MG/ML SYR IVP PRN (09:13)
[2017-09-16] MEDS ORDERED: DEXAMETHASONE 4 MG/ML VIAL IVP PRN (09:13)
[2017-09-16] MEDS ORDERED: fentaNYL 100 MCG/2 ML INJ IVP PRN (09:13)
[2017-09-16] MEDS ORDERED: ONDANSETRON 4 MG/2 ML VIAL IVP PRN (09:13)
[2017-09-16] MEDS ORDERED: NALOXONE HCL 0.4 MG/ML INJ IVP PRN (09:13)
[2017-09-16] MEDS ORDERED: PROMETHAZINE HCL 25 MG/ML INJ IVP PRN (09:13)
[2017-09-16] MEDS ORDERED: ALBUTEROL 3 ML DEYVIAL IH PRN (09:13)
[2017-09-16] MEDS ORDERED: oxyCODONE IR 5 MG TAB PO PRN (09:13)
[2017-09-16] MEDS ORDERED: LABETALOL HCL 5 MG/ML 20 ML MDV IVP PRN (09:13)
[2017-09-16] MEDS ORDERED: ACETAMINOPHEN 500 MG TAB PO PRN (09:13)
--- NOTE | 2017-09-16 09:13 | POSTANESTH ---
Post Anesthetic Evaluation Cardiovascular Status: Normal, Stable Respiratory Status: Normal, Stable Level of Consciousness/Mental Status: Mildly Sleepy, Arousable Pain Control: Adequate, Prn Tx Ordered Nausea/Vomiting Control: Adequate, Prn Tx Ordered Complications Possibly Related to Anesthesia: None Noted
[2017-09-16 09:29] VITALS: TEMP 97.9
--- NOTE | 2017-09-16 09:30 | POSTOPPROG ---
Post Op Note Date of Operation: 09/16/17 Surgeon: Nicci Osorio Wireline Field Operator: Claribel Otto PA-C Anesthesiologist: Dr. Good Anesthesia: GET(General Endotracheal) Pre-op Diagnosis: chronic pain Post-op Diagnosis: chronic pain Procedure: Implant of SCS generator to the right hip Inf/Abcess present in the surg proc area at time of surgery?: No Depth: Superfical (Skin SQ) EBL: Minimal Plan Plan: 71 yo male s/p implant of SCS to the right hip - neuro checks - pain control - advance diet as tolerated - dc home today Exam Patient seen and examined in recovery. Awake. Alert Moving all extremities Strength full Following commands
[2017-09-16 09:58] VITALS: BP 102/67; PULSE 81; RESP 16; O2SAT 94
--- NOTE | 2017-09-16 10:26 | GOP ---
[f rep st] OPERATIVE REPORT DATE OF OPERATION: 09/16/2017 SURGEON: Nicci Osorio DO NEUROSURGEON: Nicci Osorio DO. ANALYSIS OR RESEARCH SAFETY INSPECTOR: MAURO Morrison. PREOPERATIVE DIAGNOSIS: 1. Chronic pain syndrome. 2. Failed back syndrome. 3. Successful spinal cord stimulator trial. POSTOPERATIVE DIAGNOSIS: 1. Chronic pain syndrome. 2. Failed back syndrome. 3. Successful spinal cord stimulator trial. PROCEDURE PERFORMED: Placement of Medtronic Intellis spinal cord stimulator generator with connectio n to indwelling paddle lead. Impedance. FINDINGS: SPECIMENS: None. ESTIMATED BLOOD LOSS: 10 mL. INDICATIONS: This is a 71-year-old male with chronic pain syndrome, failed back syndrome, who under went a successful spinal cord stimulator paddle lead trial 1 week ago with greater than 50% relief of his pain, improvement of his activities of daily living. He elected to move forward with a generator , was offered primary cell versus rechargeable, and he elected a rechargeable Intellis generator. DESCRIPTION OF PROCEDURE He marked his belt line before surgery. He was identified, consented, sites had been marked, brought to the operating room, anesthetized under general endotracheal tube anesthe gaby, rolled onto the OR bed with a Kaz frame. All pressure points were appropriately padded. Sutur es were removed at the thoracic incision, and he was prepped and draped in the usual sterile fashion. Incision at the thoracic spine was opened with a 10 blade, and incision at the hip was opened with a 10 blade, and a pocket was created at the right hip with blunt dissection. Meticulous hemostasis was obtained with bipolar cautery. We then brought the lead up and out, cutting the extension on the dis snow end and pulling it out from underneath the drape. We then cut the stay sutures and retracted the boot using the torque wrench, protecting the contact. Removed the boot and the extension. Tunneled fr om the hip to the thoracic spine. Brought the leads down and out, leaving a strain relief loop in the thoracic spine. Placed the leads into the generator in their appropriate positions. Checked impedanc es, all impedances were good. Locked them down with a torque wrench. Rechecked impedances, all impeda nces were good. Placed it into the pocket in the appropriate configuration. Sutured it down with a 2- 0 silk suture to the fascia. Copiously irrigated each incision with over a liter of gentamicin-infuse d saline. Closed the subcutaneous layer with 2-0 Vicryl pop-offs at each incision, cutaneous layer wi th 3-0 Vicryl pop-offs at each incision. The skin at the thoracic spine was closed with 3-0 running n ylon. The skin at the hip was closed with a 4-0 running Monocryl subcuticular stitch and Steri-Strips . The thoracic wound was dressed with gauze and Medipore tape. The hip was covered with gauze and Med ipore tape. Patient tolerated procedure well. No complications. All impedances were good. DESCRIPTION OF PROCEDURE: FLUIDS: 500 mL crystalloid. URINE OUTPUT: None. DRAINS: None. COMPLICATIONS: None. /[id number]/MODL
== END 2017-09-16 11:10 | disposition home or self-care (01) ==
LOC: FSGY 06:19
PROVIDERS: ATTEND Neurological Surgery
PROC: 0JH73MZ Insertion of Stimulator Generator into Back Subcutaneous Tissue and Fascia, Percutaneous Approach (ICD-10-PCS; principal; 2017-09-16 08:15)
DX: G89.4 Chronic pain syndrome (principal); M96.1 Postlaminectomy syndrome, not elsewhere classified; M54.9 Dorsalgia, unspecified; G91.2 (Idiopathic) normal pressure hydrocephalus; E78.5 Hyperlipidemia, unspecified; F17.210 Nicotine dependence, cigarettes, uncomplicated; N40.0 Benign prostatic hyperplasia without lower urinary tract symptoms; Z98.890 Other specified postprocedural states; Z86.39 Personal history of other endocrine, nutritional and metabolic disease; Z86.010 Personal history of colon polyps; Z98.2 Presence of cerebrospinal fluid drainage device; Z88.0 Allergy status to penicillin; Z98.1 Arthrodesis status
CPT/HCPCS: C1787; C1820; J0171; J0690; J1100; J2250; J2405; J2704; J3010

== ENCOUNTER 2017-12-16 14:13 | Emergency (ER) | payer OTHER, MEDICARE ==
[2017-12-16] MEDS ORDERED: NS 1,000 ML IV ONE (14:44)
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
--- NOTE | 2017-12-16 14:59 | CPEKG ---
Heart Rate: 70 RR Interval: 857 P-R Interval: 148 QRSD Interval: 88 QT Interval: 372 QTC Interval: 402 P [place]: 44 QRS [place]: 46 T Wave [place]: 28 EKG Severity - NORMAL ECG - EKG Impression: SINUS RHYTHM Electronically Signed By: Avel Reddy 16-Dec-2017 23:16:03
[2017-12-16 15:13] LABS: PLATELET COUNT 343 10^3/uL (150-400)
[2017-12-16 15:23] LABS: INR 1.04 (0.83-1.16); PROTIME(PATIENT) 13.8 SEC (12.0-15.0)
[2017-12-16 15:30] LABS: CREATINE KINASE 73 IU/L (0-224)
[2017-12-16 18:00] VITALS: BP 155/82
--- NOTE | 2017-12-16 21:40 | GHP ---
[f rep st] HISTORY AND PHYSICAL DATE OF ADMISSION: 12/16/2017 CHIEF COMPLAINT: Recurrent falls. HISTORY OF PRESENT ILLNESS: The patient is a 71-year-old gentleman who presents to the emergency department complaining of several weeks of worsening balance and frequent falls. The patient fell approximately 3 days ago, striking his head, but not losing consciousness. He states he frequently feels off balance and unsteady. Patient has a history of hydrocephalus and underwent a UTILITY SPECIALIST shunt placement in August [address] Naik, which was subsequently revised 3 months later due to distal shunt failure. The patient currently has an indwelling [place] UTILITY SPECIALIST shunt valve that is set at 90. The patient states that he is not currently having headaches or any focal neurologic issues. He does state that he has had at least 2 years of drainage out of his right naris which he states starts in his right eye. This is nothing new to him and is not the point of his current visit. He is concerned that his shunt needs to be reset. In the past, the patient has been following up with Dr. Anne for management of his UTILITY SPECIALIST shunt, and was last seen in the clinic approximately 1 month ago for similar complaints as today. Prior attempts to dial his valve down resulted in Subdural Hematomas. PAST MEDICAL HISTORY: 1. Hydrocephalus with UTILITY SPECIALIST shunt. 2. Pituitary tumor resection. 3. Thoracic spinal cord stimulator. SOCIAL HISTORY: The patient does not drink alcohol or smoke. FAMILY HISTORY: Noncontributory. REVIEW OF SYSTEMS: Negative other than mentioned in the HPI PHYSICAL EXAM: GENERAL: Healthy-appearing 71-year-old male in no apparent distress. HEAD, EYES, EARS, NOSE, AND THROAT: Within normal limits. There is no drainage. There is no spinal fluid drainage noted from the ears or nares. Ears, nose, and throat are normal. EXTREMITIES: Within normal limits. ABDOMEN : Soft, nontender, nondistended. NEUROLOGIC: Patient is awake, alert, and oriented x4. Cranial nerves 2 through 12 are intact to gross examination. Speech is fluent. Tongue is midline. Spinal accessory muscles are intact. He has equal and symmetric strength of bilateral upper and lower extremities in all muscle groups and normal sensation in all dermatome distributions of the bilateral upper and lower extremities. He has no facial droop and no pronator drift. DATA REVIEW: CT scan of the head without contrast performed today was compared to an imaging study from November of 2016, and demonstrated stable findings with stable ventriculomegaly, well positioned right occipital UTILITY SPECIALIST shunt, and no evidence of acute intracranial hemorrhage, ischemia, or mass effect. IMPRESSION: This is a 71-year-old male with worsening falls over the past several months, and a history of a right occipital ventriculoperitoneal shunt placed for hydrocephalus in 2014, following pituitary surgery. Neurologically, the patient is intact with no focal deficits. Based on his last office note, his Codman ventriculoperitoneal shunt is set at 90. The patient feels that he may have improved balance with adjustment of this shunt to a lower setting. In the past when the patient's shunt had been set at a lower setting, he did develop subdural hematomas, thus his valve is currently set at 90, and in his previous discussions with Dr. Anne it was felt that it would not be in his best interest to not adjust the valve any lower secondary to this risk. In any event, the patient is willing to take this chance if there is possible benefit to be had from a lower setting. PLAN: All the above issues were discussed with the emergency room physician as well as Dr. Monroe who saw the patient in the emergency department today at approximately 4:30 p.m. The patient will be seen tomorrow morning in our clinic for evaluation and possible adjustment of his UTILITY SPECIALIST shunt. At this time, the patient is okay to be discharged from neurosurgical standpoint. He will follow up tomorrow morning. /[id number]/MODL MTDD
== END 2017-12-16 17:59 | disposition home or self-care (01) ==
DX: D35.2 Benign neoplasm of pituitary gland (principal); F17.200 Nicotine dependence, unspecified, uncomplicated; E86.9 Volume depletion, unspecified; Z98.2 Presence of cerebrospinal fluid drainage device
CPT/HCPCS: 84484-PO

== ENCOUNTER → 2018-02-10 | Outpatient (CLI) | payer OTHER, MEDICARE | DX: D35.2 Benign neoplasm of pituitary gland (principal); M96.1 Postlaminectomy syndrome, not elsewhere classified; G89.4 Chronic pain syndrome; Z98.2 Presence of cerebrospinal fluid drainage device | CPT/HCPCS: 70553; A9585 ==

== ENCOUNTER → 2018-06-18 | Outpatient (CLI) | payer OTHER, MEDICARE | LOC: CIMAGING 11:20 | PROVIDERS: ATTEND Neurological Surgery | DX: D35.2 Benign neoplasm of pituitary gland (principal); G91.9 Hydrocephalus, unspecified; Z98.2 Presence of cerebrospinal fluid drainage device | CPT/HCPCS: 70450-PO ==

== ENCOUNTER 2018-09-04 17:49 | Emergency (ER) | payer OTHER, MEDICARE ==
--- NOTE | 2018-09-04 20:42 | EDPHY ---
H & P Stated Complaint: mechanical fall 2 days ago--hit L rib area -SOB Time Seen by Provider: 09/04/18 18:49 HPI/ROS: CHIEF COMPLAINT: Left chest pain, shortness of breath HISTORY OF PRESENT ILLNESS: 72-year-old male with hydrocephalus presents after a fall with left-sided chest pain and shortness of breath. He slipped and fall while using his cane 3 days ago. He fell on to his left side and landed in some decorative rocks. Immediate onset of left-sided chest pain. The pain increases with deep inspiration. Associated with shortness of breath with exertion. He also feels slightly more unsteady than usual when he is walking. He has ongoing unsteadiness secondary to hydrocephalus. Takes [place] daily for chronic back pain. Last dose at 3:00 p.m. Today. He did not hit his head. No headache or neck pain. REVIEW OF SYSTEMS: complete 10 point ROS reviewed and is negative except for the noted elements in the HPI - Personal History Tetanus Vaccine Date: 2009 - Medical/Surgical History Hx Asthma: No Hx Chronic Respiratory Disease: No Hx Diabetes: No Hx Cardiac Disease: No Hx Renal Disease: No Hx Cirrhosis: No Hx Alcoholism: No Hx HIV/AIDS: No Hx Splenectomy or Spleen Trauma: No Other PMH: pituitary tumor, neuropathy, hydrocephalus, brain shunt placement with subsequent breakage of device and abdominal surgery for removal of broken device pieces 12/11 with insertion of new device.back surgery x 4. bilat knee surg - Social History Smoking Status: Current every day smoker - Physical Exam Exam: General Appearance: Alert, pleasant Eyes: Pupils equal and round, no conjunctival pallor or injection ENT, Mouth: Mucous membranes moist Neck: Normal inspection, no tenderness, range of motion without pain Respiratory: linear ecchymosis left lateral chest wall, tender over the area of ecchymosis, lungs are clear to auscultation Cardiovascular: Regular rate and rhythm Gastrointestinal: Abdomen is soft and nontender Neurological: A&O, nonfocal, normal gait Skin: Warm and dry Extremities: Normal inspection, no tenderness Psychiatric: Mood and affect normal Constitutional: Initial Vital Signs Temperature (C) 36.5 C 09/04/18 17:58 Heart Rate 70 09/04/18 17:58 Respiratory Rate 18 09/04/18 17:58 Blood Pressure 135/74 H 09/04/18 17:58 O2 Sat (%) 91 L 09/04/18 17:58 O2 Delivery Mode Room Air Allergies/Adverse Reactions: amoxicillin trihydrate [From Augmentin] Allergy (Mild, Verified 12/16/17 14:16) Rash potassium clavulanate [From Augmentin] Allergy (Mild, Verified 12/16/17 14:16) Rash Home Medications: Medication Instructions Recorded Tamsulosin HCl [Flomax 0.4 MG (*)] 0.4 mg PO DAILY06 03/09/15 Herbals/Supplements -Info Only 1 ea PO DAILY 09/15/16 Multivitamins [Multivitamin (*)] 1 tab PO DAILY 09/15/16 GABAPENTIN BID 08/04/17 TESTOSTERONE INJ 08/04/17 Hydrocodone/Acetaminophen [[place] 1 - 2 tab PO Q4 PRN #90 tablet 09/09/17 7.5-325 Tablet] Methocarbamol [Robaxin 750 mg (*)] 750 mg PO QID #60 tab 09/09/17 Cymbalta 60 MG (*) 09/16/17 Medical Decision Making - Diagnostics Imaging Results: Imaging Impressions Chest X-Ray 09/04/18 20:01 Impression: 1. Suspect airways disease with no superimposed acute abnormality identified. 2. See above report for additional findings. Chest x-ray independently reviewed by me reveals a left-sided rib fracture, no pneumothorax. Imaging: I viewed and interpreted images myself ED Course/Re-evaluation: This patient presents with left-sided chest pain and shortness of breath after a fall. Oxygen saturation 91% on room air. Chest x-ray reveals a left-sided rib fracture. The patient ambulated with a steady gait using his cane throughout the emergency department and oxygen saturation was mainly 88% on room air. He transiently dropped to 86% on room air, but the O2 sat improved with a deep breath. Did not feel SOB. Pt's usual O2 sat 88-90%. Slight increase in unsteady gait discussed with patient at length. Declines eval of TOBACCO EDUCATOR shunt today, does not feel that there is an acute shunt problem today. Declines admission, feels he is safe at home. Warning signs discussed. Will f/u with Dr. Anne in the office in 2-3 days. Differential Diagnosis: Differential diagnosis includes though it is not limited to fracture, intracranial hemorrhage, pneumothorax, hemothorax, intra-abdominal hemorrhage. Departure - Departure Disposition: Home, Routine, Self-Care Clinical Impression: Left rib fracture Qualifiers: Encounter type: initial encounter Rib fracture type: single rib Fracture type: closed Qualified Code(s): S22.32XA - Fracture of one rib, left side, initial encounter for closed fracture Condition: Good Instructions: Rib Fracture (ED) Additional Instructions: Ibuprofen 600 mg 3 times daily while the pain persists. Take [place] as needed for severe pain. Use the incentive spirometer as directed. Referrals: Wood Ferrera MD [Medical Doctor] - As per Instructions Angelito Anne MD [Medical Doctor] - As per Instructions (Call to make an appointment. )
[2018-09-04 20:58] VITALS: BP 133/70
== END 2018-09-04 20:57 | disposition home or self-care (01) ==
DX: S22.32XA Fracture of one rib, left side, initial encounter for closed fracture (principal); G91.9 Hydrocephalus, unspecified; W01.0XXA Fall on same level from slipping, tripping and stumbling without subsequent striking against object, initial encounter; Y92.9 Unspecified place or not applicable; Y99.9 Unspecified external cause status; Y93.9 Activity, unspecified; Z98.2 Presence of cerebrospinal fluid drainage device

== ENCOUNTER 2018-12-26 19:41 | Emergency (ER) | payer OTHER, MEDICARE | END 2018-12-26 22:02 | disposition home or self-care (01) ==